=== PATIENT | female | born 1970 | race Caucasian/White ===

== ENCOUNTER → 2017-09-09 | Outpatient (CLI) | payer OTHER ==
[2015-07-19 12:37] VITALS: BMI 31.6
[~2017-09-09] MED LIST: ESTR1PAT99 TD; GOLYTE PO; HYDR-389 PO; IBUP800T37 PO; LEVO50TA86 PO; NO ROUTINE MEDS; PANT40TA65 PO
--- NOTE | 2017-09-12 09:57 | RADIOLOGY IMAGING REPORT ---
FACILITY: [facility] PATIENT NAME: CLAUDIO PALENCIA : [id number] MR: [id number] V: [id number] EXAM DATE: ORDERING PHYSICIAN: SIERRA FROST TECHNOLOGIST: Danyell Parker PROCEDURE:BILATERAL DIGITAL SCREENING MAMMOGRAM WITH CAD ASSISTED INTERPRETATION AND 3D BREAST TOMOSYNTHESIS. COMPARISON:Prior mammograms dated 09/02/16, 09/01/15, 08/28/14, 08/27/13, 08/24/12 and 08/23/11. INDICATIONS:SCREENING FINDINGS: A small amount of fibroglandular tissue is seen throughout the breasts. The parenchymal pattern has remained stable when allowing for difference in mammographic technique and patient positioning. There is no evidence of malignant appearing mass, malignant appearing calcification or other secondary sign of malignancy in either breast. DIAGNOSTIC CATEGORY 1--NEGATIVE. RECOMMENDATIONS: ROUTINE MAMMOGRAM AND CLINICAL EVALUATION. IMPRESSION: Bi-RADS 1: No significant abnormality is seen. Images were reviewed with R2CAD and 3D breast tomosynthesis. Dictated by: Julia Sams M.D. on 09/09/2017 at 12:16 Transcribed by: MOIZ on 09/11/2017 at 19:49 Approved by: Julia Sams M.D. on 09/12/2017 at 9:56 [facility]
== END ==
LOC: MAMO 00:52
PROVIDERS: ATTEND Obstetrics & Gynecology
DX: Z12.31 Encounter for screening mammogram for malignant neoplasm of breast (principal)
CPT/HCPCS: 77063; 77067

== ENCOUNTER → 2018-10-19 | Outpatient (CLI) | payer OTHER ==
[2015-07-19 12:37] VITALS: BMI 31.6
[~2018-10-19] MED LIST changes: +AMOX-559 PO; +AZIT-1 PO; +BENZ200C15 PO; +ESTR1PAT TD; +ESTR1PAT3 TD; +Work Note
--- NOTE | 2018-10-25 16:44 | RADIOLOGY IMAGING REPORT ---
FACILITY: [facility] [place] PATIENT NAME: CLAUDIO PALENCIA : [id number] MR: [id number] V: [id number] EXAM DATE: [id number] ORDERING PHYSICIAN: PAULINA ARIAS TECHNOLOGIST: Danyell Parker PROCEDURE:BILATERAL DIGITAL SCREENING MAMMOGRAM WITH CAD ASSISTED INTERPRETATION & 3D TOMOSYNTHESIS COMPARISON:Prior mammograms. INDICATIONS:SCREENING FINDINGS: Scattered fibroglandular densities are present in both breasts. A small benign appearing nodularity is present in the anterior Left breast. Minimal benign appearing asymmetries are scattered bilaterally, unchanged. DIAGNOSTIC CATEGORY 1--NEGATIVE. RECOMMENDATIONS: ROUTINE MAMMOGRAM AND CLINICAL EVALUATION IN 1 YR. IMPRESSION: BIRADS 1: Negative. Dictated by: Ede Ram M.D. on 10/20/2018 at 8:47 Transcribed by: CLAIR on 10/20/2018 at 9:51 Approved by: Julia Sams M.D. on 10/25/2018 at 16:43 [facility]
== END ==
LOC: MAMO 00:40
PROVIDERS: ATTEND Obstetrics & Gynecology
DX: Z12.31 Encounter for screening mammogram for malignant neoplasm of breast (principal)
CPT/HCPCS: 77063; 77067

== ENCOUNTER → 2018-10-31 | Outpatient (CLI) | payer OTHER ==
[2015-07-19 12:37] VITALS: BMI 31.6
[~2018-10-31] MED LIST changes: +ALBU2.5V36 INH; +PRED20TA6 PO
--- NOTE | 2018-10-31 16:29 | RADIOLOGY IMAGING REPORT ---
FACILITY: PATIENT NAME: Micaela Santos : 1970 MR: [id number] V: [id number] EXAM DATE: [id number] ORDERING PHYSICIAN: STELLA BALBUENA TECHNOLOGIST: Location: [facility] [place] Patient: Micaela Santos : 1970 Visit/Account:[id number] Date of Sevice: 10/31/2018 Exam type: CHEST PA LAT History: Cough, SOB, oxygen saturation slightly low (88-89%) Comparison: None. Findings: The lungs are free of acute effusions, infiltrates or edema. The trachea is in midline. The cardiac silhouette is normal in size. There is no evidence of a pneumothorax or pneumomediastinum. IMPRESSION: 1. No acute cardiopulmonary process is seen Report Dictated By: Julia Sams MD at 10/31/2018 4:23 PM Report E-Signed By: Julia Sams MD at 10/31/2018 4:25 PM WSN:[email or web address]
== END ==
LOC: RAD 15:40
PROVIDERS: ATTEND Nurse Practitioner Primary Care
DX: R05 Cough (principal)
CPT/HCPCS: 71046

== ENCOUNTER → 2018-12-28 | Outpatient (CLI) | payer OTHER ==
[2015-07-19 12:37] VITALS: BMI 31.6
[~2018-12-28] MED LIST changes: +SULF-198 PO
== END ==
LOC: LAB 09:57
PROVIDERS: ATTEND Nurse Practitioner Primary Care
DX: N39.0 Urinary tract infection, site not specified (principal); R30.0 Dysuria; B96.20 Unspecified Escherichia coli [E. coli] as the cause of diseases classified elsewhere
CPT/HCPCS: 81001; 87077; 87088; 87186

== ENCOUNTER → 2019-01-31 | Outpatient (CLI) | payer OTHER ==
[2015-07-19 12:37] VITALS: BMI 31.6
[~2019-01-31] MED LIST changes: +HYDR-653 PO; +HYDR12.561 PO
[2019-01-31 09:18] LABS: PLATELET COUNT, AUTOMATED 209 K/uL (150-450)
== END ==
LOC: LAB 08:59
PROVIDERS: ATTEND Nurse Practitioner Primary Care
DX: R60.0 Localized edema (principal)
CPT/HCPCS: 36415; 82040; 82247; 82310; 82374; 82435; 82565; 82947; 83880; 84075; 84132; 84155; 84295; 84443; 84450; 84460; 84520; 84550; 85025

== ENCOUNTER 2019-02-02 19:33 | Emergency (ER) | payer OTHER ==
[2015-07-19 12:37] VITALS: Wt 104.3 kg
[~2019-02-02 19:33] MED LIST changes: -HYDR-653 PO
--- NOTE | 2019-02-02 19:46 | ER Report ---
History and Physical Time Seen By MD: 19:36 HPI/ROS CHIEF COMPLAINT: Knee pain HISTORY OF PRESENT ILLNESS: This is a 48-year-old female who presents to the emergency department for knee pain. Patient states that 2 weeks ago she had lower back pain, went to her chiropractor had an adjustment has done well since then last week began to develop some left-sided knee pain, progressively getting worse, then a friend is deferred to the right side. She was seen by Stella Garcia 2 days ago, had swelling around both knees, was given a diuretic, patient states this is improved. Patient also went and saw her chiropractor yesterday and had some adjustments done again, had some electrostimulation of her legs and an ultrasound to break up some of the tissue. 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 Patient states that the right knee is so painful she does not feels that she can stand, took 800 mg ibu profen a couple of hours ago. Patient is very tearful. She denies fevers or chills. No nausea or vomiting. No chest pain or shortness of breath. REVIEW OF SYSTEMS: Respiratory: No cough, no dyspnea. Cardiovascular: No chest pain, no palpitations. Gastrointestinal: No vomiting, no abdominal pain. Musculoskeletal: As above. Allergies: Coded Allergies: amoxicillin (Verified Allergy, Intermediate, HIVES, 11/24/18) Hives, itching, chest tightness clavulanic acid (Verified Allergy, Intermediate, HIVES, 11/24/18) Hives, itching, chest tightness Home Meds Active Scripts Prednisone (PREDNISONE) 20 Mg Tablet, 20 MG PO BID, #10 TAB Prov:HORTENCIA RYDER [facility]- 02/02/19 Hydrocodone Bit/Acetaminophen (NORCO 5-325 TABLET) 1 Each Tablet, 1 EACH PO Q4- 6H PRN for PAIN, #8 TAB Prov:HORTENCIA RYDER [facility]-BC 02/02/19 Hydrochlorothiazide (HYDROCHLOROTHIAZIDE) 12.5 Mg Tablet, 1-2 TAB PO QDAY PRN f or lower extremity swelling, #10 TAB 0 Refills Prov:STELLA BALBUENA DNP, ASSISTANT PROFESSOR OF ANTHROPOLOGY-BC 01/31/19 Estradiol (ESTRADIOL 0.075 MG) 1 Each Patch.tdwk, 1 EACH TD 2XW, #24 PATCH.WK 2 Refills Prov:PAULINA ARIAS MD 10/20/18 Levothyroxine Sodium (LEVOTHYROXINE SODIUM) 50 Mcg Tablet, 50 MCG PO QDAY, #90 TAB 3 Refills Prov:PAULINA ARIAS MD 08/03/18 Discontinued Scripts Sulfamethoxazole/Trimet 800-160 Mg Tab (BACTRIM DS TABLET) 1 Each Tablet, 1 TAB PO Q12H for 3 Days, #6 TAB 0 Refills Prov:STELLA BALBUENA DNP, ASSISTANT PROFESSOR OF ANTHROPOLOGY-BC 12/28/18 Past Medical/Surgical History The patient has a past medical and surgical history of low oxygen at night, being evaluated for sleep apnea, pneumonia, fibroids, ovarian cyst, hypothyroidism, hysterectomy, left elbow surgery. Reviewed Nurses Notes: Yes Hx Smoking: No Smoking Status: Never Smoker Hx Substance Use Disorder: No Hx Alcohol Use: No Constitutional Vital Sign - Last 24 Hours 02/02/19 19:37 Temp 98.1 Pulse 74 Resp 16 B/P (MAP) 133/97 Pulse Ox 90 Physical Exam General Appearance: The patient is alert, has no immediate need for airway protection and no current signs of toxicity. Anxious and tearful. Eyes: Pupils equal and round no injection. Respiratory: Chest is non tender, lungs are clear to auscultation. Cardiac: regular rate and rhythm no murmurs, clicks or rubs. Gastrointestinal: Abdomen is soft and non tender, no masses, bowel sounds normal. Musculoskeletal: Neck: Neck is supple and non tender. Extremities mild bilateral posterior knee discomfort with palpation right greater than left, negative anterior and posterior drawer test bilaterally, negative valgus and varus bilaterally. Mild edema to the right knee around the medial aspect. No heat, erythema or cellulitis to the knees bilaterally. CMS intact. Skin: No rashes or lesions. DIFFERENTIAL DIAGNOSIS: After history and physical exam differential diagnosis was considered for DVT, Senior's cyst, arthritis, early onset RA, septic arthritis. Medical Decision Making Data Points Result Diagram: 02/02/19200702/02/192007 Laboratory Hematology Test 02/02/19 20:08 Red Blood Count 5.25 M/uL (4.17-5.56) Mean Corpuscular Volume 88.1 fL (80.0-96.0) Mean Corpuscular Hemoglobin 30.1 pg (26.0-33.0) Mean Corpuscular Hemoglobin Concent 34.2 g/dL (32.0-36.0) Red Cell Distribution Width 12.6 % (11.5-14.5) Mean Platelet Volume 9.1 fL (7.2-11.1) Neutrophils (%) (Auto) 59.4 % (39.4-72.5) Lymphocytes (%) (Auto) 24.5 % (17.6-49.6) Monocytes (%) (Auto) 10.2 % (4.1-12.4) Eosinophils (%) (Auto) 5.3 % (0.4-6.7) Basophils (%) (Auto) 0.6 % (0.3-1.4) Nucleated RBC Relative Count (auto) 0.1 /100WBC Neutrophils # (Auto) 3.8 K/uL (2.0-7.4) Lymphocytes # (Auto) 1.6 K/uL (1.3-3.6) Monocytes # (Auto) 0.7 K/uL (0.3-1.0) Eosinophils # (Auto) 0.3 K/uL (0.0-0.5) Basophils # (Auto) 0.0 K/uL (0.0-0.1) Nucleated RBC Absolute Count (auto) 0.01 K/uL Erythrocyte Sedimentation Rate 2 mm/HOUR (0-30) Sodium Level 136 mmol/L (137-145) Potassium Level 4.0 mmol/L (3.5-5.0) Chloride Level 102 mmol/L (98-107) Carbon Dioxide Level 25 mmol/L (22-31) Blood Urea Nitrogen 18 mg/dl (7-18) Creatinine 0.90 mg/dl (0.52-1.04) Glomerular Filtration Rate Calc > 60.0 Random Glucose 89 mg/dl (75-110) Calcium Level 9.3 mg/dl (8.4-10.2) Total Bilirubin 0.9 mg/dl (0.2-1.3) Aspartate Amino Transf (AST/SGOT) 28 U/L (0-35) Alanine Aminotransferase (ALT/SGPT) 28 U/L (0-56) Alkaline Phosphatase 74 U/L (0-126) C-Reactive Protein < 0.5 mg/dl (<1.0) Total Protein 7.1 g/dl (6.3-8.2) Albumin 4.4 g/dl (3.5-5.0) Chemistry Test 02/02/19 20:08 White Blood Count 6.4 k/uL (4.5-11.0) Red Blood Count 5.25 M/uL (4.17-5.56) Hemoglobin 15.8 g/dL (12.0-16.0) Hematocrit 46.3 % (34.0-47.0) Mean Corpuscular Volume 88.1 fL (80.0-96.0) Mean Corpuscular Hemoglobin 30.1 pg (26.0-33.0) Mean Corpuscular Hemoglobin Concent 34.2 g/dL (32.0-36.0) Red Cell Distribution Width 12.6 % (11.5-14.5) Platelet Count 236 K/uL (150-450) Mean Platelet Volume 9.1 fL (7.2-11.1) Neutrophils (%) (Auto) 59.4 % (39.4-72.5) Lymphocytes (%) (Auto) 24.5 % (17.6-49.6) Monocytes (%) (Auto) 10.2 % (4.1-12.4) Eosinophils (%) (Auto) 5.3 % (0.4-6.7) Basophils (%) (Auto) 0.6 % (0.3-1.4) Nucleated RBC Relative Count (auto) 0.1 /100WBC Neutrophils # (Auto) 3.8 K/uL (2.0-7.4) Lymphocytes # (Auto) 1.6 K/uL (1.3-3.6) Monocytes # (Auto) 0.7 K/uL (0.3-1.0) Eosinophils # (Auto) 0.3 K/uL (0.0-0.5) Basophils # (Auto) 0.0 K/uL (0.0-0.1) Nucleated RBC Absolute Count (auto) 0.01 K/uL Erythrocyte Sedimentation Rate 2 mm/HOUR (0-30) Glomerular Filtration Rate Calc > 60.0 Calcium Level 9.3 mg/dl (8.4-10.2) Total Bilirubin 0.9 mg/dl (0.2-1.3) Aspartate Amino Transf (AST/SGOT) 28 U/L (0-35) Alanine Aminotransferase (ALT/SGPT) 28 U/L (0-56) Alkaline Phosphatase 74 U/L (0-126) C-Reactive Protein < 0.5 mg/dl (<1.0) Total Protein 7.1 g/dl (6.3-8.2) Albumin 4.4 g/dl (3.5-5.0) EKG/Imaging Imaging PATIENT NAME: Micaela Santos : 1970 MR: [id number] V: [id number] EXAM DATE: ORDERING PHYSICIAN: HORTENCIA RYDER TECHNOLOGIST: Location: [facility] Patient: Micaela Santos : 1970 Visit/Account:[id number] Date of Sevice: 02/02/2019 EXAMINATION: Bilateral Lower Extremity Venous Ultrasound HISTORY: Bilateral leg pain. TECHNIQUE: Ultrasound evaluation of the bilateral lower extremity veins was performed with color and spectral Doppler and compression views. COMPARISON: None. FINDINGS: The bilateral common femoral, femoral, proximal deep femoral, popliteal, and segmentally visualized deep calf veins are patent and compressible, without evidence of intraluminal thrombus. The upper greater saphenous vein is patent bilaterally. No visualized Senior cyst along either popliteal fossa. IMPRESSION: No sonographic evidence of DVT in either leg. Report Dictated By: Jeremiah Lucas MD at 02/02/2019 9:54 PM Report E-Signed By: Jeremiah Lucas MD at 02/02/2019 9:56 PM WSN:[id number] PATIENT NAME: Micaela Santos : 1970 MR: [id number] V: [id number] EXAM DATE: [id number] ORDERING PHYSICIAN: HORTENCIA RYDER TECHNOLOGIST: Location: [facility] Patient: Micaela Santos : 1970 Visit/Account:[id number] Date of Sevice: 02/02/2019 Technique: XR KNEE 4 OR MORE VIEWS HISTORY: Bilateral knee pain Comparison studies: None FINDINGS: Right knee: There is no acute fracture. Mild medial tibiofemoral osteophytosis and patellofemoral osteophytosis is present. There is mild lateral tilt of the patella. The remaining alignment of the right knee is preserved. No knee joint effusion. Left knee: There is no acute fracture. Noted is spurring of the tibial spines as well as mild patellofemoral osteophyte formation. There is also slight lateral tilt of the patella. The remaining alignment of the left knee is preserved. No knee joint effusion. IMPRESSION: 1. Degenerative findings as characterized above. Report Dictated By: Ortiz Hawkins DO at 02/02/2019 8:48 PM Report E-Signed By: Ortiz Hawkins DO at 02/02/2019 8:50 PM WSN:[id number] ED Course/Re-evaluation Clinical Indication for ER IV: Hydration, IV Access ED Course The patient was admitted to room. A history of physical were obtained. Differential diagnoses were considered. An IV was started. A CBC, CMP, ESR and CRP were obtained. A 1 L normal saline bolus was given. 4 mg IV morphine, 125 mg IV Solu-Medrol. Laboratory studies unremarkable, ESR and CRP normal. Bilateral knee x-rays showing Right knee: There is no acute fracture. Mild medial tibiofe moral osteophytosis and patellofemoral osteophytosis is present. There is mild lateral tilt of the patella. Left knee: There is no acute fracture. Noted is spurring of the tibial spines as well as mild patellofemoral osteophyte formation. Negative bilateral lower extremity ultrasound for DVT. I did review the results with the patient, I did tell her that the pain could be secondary to the ultrasound therapy and elected therapy that she received at her chiropractor, could also be exacerbation of bowel arthritis, although her ESR and CRP were negative. She was given prednisone and hydrocodone. Instructed to follow-up with [facility] next week for reevaluation. She will return to the emergency department for any other concerns or worsening symptoms, she was agreeable with this plan of care and discharged home. Decision to Disposition Date: February 02, 2019 Decision to Disposition Time: 22:06 Depart Departure Latest Vital Signs Vital Signs Date Time Temp Pulse Resp B/P (MAP) Pulse Ox O2 Delivery O2 Flow Rate FiO2 02/02/19 19:37 98.1 74 16 133/97 90 Impression: Primary Impression: Bilateral knee pain Condition: Improved Disposition: HOME OR SELF-CARE Referrals: PAULINA ARIAS MD (PCP) [facility] New Scripts Prednisone (PREDNISONE) 20 Mg Tablet 20 MG PO BID, #10 TAB Prov: HORTENCIA RYDER 02/02/19 Hydrocodone Bit/Acetaminophen (NORCO 5-325 TABLET) 1 Each Tablet 1 EACH PO Q4-6H PRN for PAIN, #8 TAB Prov: HORTENCIA RYDER 02/02/19 Patient Instructions: Knee Pain (ED) Additional Instructions: No concerning findings on your blood work. The Xrays showing some degenerative pathology, this could be contributing to the pain. Please contact [facility] next week for a follow up. In the mean time, take the steroids for pain, avoid NSAIDS while taking steroids. You can take 500-1000mg of Tylenol as needed for additional pain relief. If the Tylenol is not working you can take the Hydrocodone for severe pain, this does have Tylenol in it so do not take additional Tylenol while taking the Hydrocodone. Drink plenty of water. Get plenty of rest. Use the tomasz wraps for compression. Return to the ED for any other concerns or worsening symptoms. Problem Qualifiers Primary Impression: Bilateral knee pain Chronicity: unspecified Qualified Codes: M25.561 - Pain in right knee; M25.562 - Pain in left knee HORTENCIA RYDER February 02, 2019 19:46
[2019-02-02] MEDS ORDERED: MORPHINE 4 MG/ML SDV IVP ONE (19:50)
[2019-02-02] MEDS ORDERED: methylPREDNIS SUCC 125 MG/2ML IVP ONE (19:50)
[2019-02-02] MEDS ORDERED: NS(*) 0.9% 1000 ML BAG 1,000 ML IV ONE (19:50)
[2019-02-02 20:22] LABS: PLATELET COUNT, AUTOMATED 236 K/uL (150-450)
--- NOTE | 2019-02-02 20:55 | RADIOLOGY IMAGING REPORT ---
FACILITY: [facility] [place] PATIENT NAME: Micaela Santos : 1970 MR: [id number] V: [id number] EXAM DATE: ORDERING PHYSICIAN: HORTENCIA RYDER TECHNOLOGIST: Location: [facility] [place] Patient: Micaela Santos : 1970 Visit/Account:[id number] Date of Sevice: 02/02/2019 Technique: XR KNEE 4 OR MORE VIEWS HISTORY: Bilateral knee pain Comparison studies: None FINDINGS: Right knee: There is no acute fracture. Mild medial tibiofemoral osteophytosis and patellofemoral ost eophytosis is present. There is mild lateral tilt of the patella. The remaining alignment of the righ t knee is preserved. No knee joint effusion. Left knee: There is no acute fracture. Noted is spurring of the tibial spines as well as mild patello femoral osteophyte formation. There is also slight lateral tilt of the patella. The remaining alignme nt of the left knee is preserved. No knee joint effusion. IMPRESSION: 1. Degenerative findings as characterized above. Report Dictated By: Ortiz Hawkins DO at 02/02/2019 8:48 PM Report E-Signed By: Ortiz Hawkins DO at 02/02/2019 8:50 PM WSN:[id number]
[2019-02-02] MEDS ORDERED: PRED20TA6 PO (21:49)
[2019-02-02] MEDS ORDERED: HYDR-653 PO (21:49)
[2019-02-02] MEDS ORDERED: predniSONE 20 MG TAB PO ONE (21:55)
[2019-02-02] MEDS ORDERED: ACET/HYDROC 5/325MG TH ER ONLY 2 TAB/BOTTLE PO ONE (21:55)
--- NOTE | 2019-02-02 22:00 | RADIOLOGY IMAGING REPORT ---
FACILITY: [facility] PATIENT NAME: Micaela Santos : 1970 MR: [id number] V: [id number] EXAM DATE: ORDERING PHYSICIAN: HORTENCIA RYDER TECHNOLOGIST: Location: [facility] Patient: Micaela Santos : 1970 Visit/Account:[id number] Date of Sevice: 02/02/2019 EXAMINATION: Bilateral Lower Extremity Venous Ultrasound HISTORY: Bilateral leg pain. TECHNIQUE: Ultrasound evaluation of the bilateral lower extremity veins was performed with color and spectral Doppler and compression views. COMPARISON: None. FINDINGS: The bilateral common femoral, femoral, proximal deep femoral, popliteal, and segmentally visualized d eep calf veins are patent and compressible, without evidence of intraluminal thrombus. The upper gre ater saphenous vein is patent bilaterally. No visualized Senior cyst along either popliteal fossa. IMPRESSION: No sonographic evidence of DVT in either leg. Report Dictated By: Jeremiah Lucas MD at 02/02/2019 9:54 PM Report E-Signed By: Jeremiah Lucas MD at 02/02/2019 9:56 PM WSN:[id number]
[2019-02-02 22:15] VITALS: BP 128/88
[2019-02-06] MEDS ORDERED: HYDR12.561 PO (17:09)
== END 2019-02-02 22:20 | disposition home or self-care (01) ==
LOC: ER 19:43
DX: M25.562 Pain in left knee (principal); M25.561 Pain in right knee; E03.9 Hypothyroidism, unspecified; Z79.899 Other long term (current) drug therapy
CPT/HCPCS: 73562; 85025; 85651; 86140; 93970; 96361; 96374; 96375; 99284; J2270; J2930; J7030; J7512; 82040; 82247; 82310; 82374; 82435; 82565; 82947; 84075; 84132; 84155; 84295; 84450; 84460; 84520

== ENCOUNTER → 2019-02-02 | Outpatient (CLI) | payer OTHER ==
[2015-07-19 12:37] VITALS: BMI 31.6
== END ==
LOC: US 01:59
PROVIDERS: ATTEND Nurse Practitioner Primary Care
DX: R60.0 Localized edema (principal)
CPT/HCPCS: 93306